=== PATIENT | female | born 1965 | race Two or more races ===

== ENCOUNTER 2019-04-11 06:48 | Outpatient (CLI) | payer OTHER | END 2019-04-11 09:11 | disposition home or self-care (01) | LOC: LAB 06:48 → EDBD 06:48 → LAB 09:11 | DX: E22.1 Hyperprolactinemia (principal); E11.65 Type 2 diabetes mellitus with hyperglycemia; E78.2 Mixed hyperlipidemia; E55.9 Vitamin D deficiency, unspecified ==

== ENCOUNTER 2019-04-11 08:10 | Outpatient (CLI) | payer OTHER | END 2019-04-11 09:24 | disposition home or self-care (01) | LOC: SONOGRAMA 08:10 | DX: E04.1 Nontoxic single thyroid nodule (principal) ==

== ENCOUNTER 2022-07-26 07:44 | Outpatient (CLI) | payer OTHER | END 2022-07-26 07:56 | disposition home or self-care (01) | LOC: TOM 07:44 | DX: M79.642 Pain in left hand (principal); M79.641 Pain in right hand; Z12.11 Encounter for screening for malignant neoplasm of colon ==